=== PATIENT | male | born 2000 | race Caucasian/White ===

== ENCOUNTER 2022-01-17 20:47 | Emergency (ER) | payer OTHER | END 2022-01-17 22:50 | disposition home or self-care (01) | LOC: MW.ED 20:47 | DX: S52.512A Displaced fracture of left radial styloid process, initial encounter for closed fracture (principal); S52.612A Displaced fracture of left ulna styloid process, initial encounter for closed fracture; W19.XXXA Unspecified fall, initial encounter | CPT/HCPCS: 29125; 73110-26-LT; 73110-LT; 99283-25 ==